=== PATIENT | male | born 2000 | race Caucasian/White ===

== ENCOUNTER 2022-02-10 20:17 | Emergency (ER) | payer OTHER ==
[~2022-02-10] VITALS: Ht 170.2 cm; Wt 65.8 kg
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
--- NOTE | 2022-02-10 20:53 | NUR ---
Dr. Soriano at bedside for MSE.
[2022-02-10] MEDS ORDERED: MORPHINE SULFATE 4 MG/1 ML DISP.SYRIN IV ONE (21:00)
[2022-02-10] MEDS ORDERED: CEFAZOLIN 2 G in IV DEXTROSE 5% 100 ML IV ONE (21:00)
[2022-02-10] MEDS ORDERED: TDAP DIPH,PERTUSS,TET VAC/PF 0.5 ML DISP.SYRIN IM ONE ×2 (21:00→21:15)
[2022-02-10] MEDS ORDERED: CEFAZOLIN 1 G VIAL ONE (21:14)
[2022-02-10] MEDS ORDERED: MORPHINE SULFATE 4 MG/1 ML DISP.SYRIN ONE (21:15)
[2022-02-10] MEDS ORDERED: MORPHINE SULFATE 2 MG/1 ML DISP.SYRIN ONE (21:15)
[2022-02-10] MEDS ORDERED: LIDOCAINE HCL 1% 20 ML VIAL ONE (22:40)
[2022-02-10] MEDS ORDERED: LIDOCAINE HCL 1% 20 ML VIAL IJ ONE (22:45)
--- NOTE | 2022-02-11 00:10 | NUR ---
Called [facility], spoke to nursing supervisor pit and auxiliaries Anita who states they don't have a hand surgeon on staff.
--- NOTE | 2022-02-11 00:11 | NUR ---
Dr. Soriano placed sutures to left thumb area. he states the pt will need a hand surgeon.
--- NOTE | 2022-02-11 00:20 | NUR ---
Called [facility] and spoke to Michelle who requested facesheet and clinicals ro be faxed to
--- NOTE | 2022-02-11 00:31 | NUR ---
Called [facility] center and spoke to Usha who requested clinicals and facesheet
--- NOTE | 2022-02-11 00:45 | NUR ---
spoke with [facility] they are requesting clinicals, face sheet and xray to be faxed to [phone]
--- NOTE | 2022-02-11 00:52 | NUR ---
Called [facility] and spoke to GM who states they ar unable to accept patient due to they are at capacity at this time.
[2022-02-11] MEDS ORDERED: VANCOMYCIN 1G/D5W 200 ML PIGGYBACK IV ONE (01:00)
[2022-02-11] MEDS ORDERED: VANCOMYCIN IV 200 ML ONE (01:21)
--- NOTE | 2022-02-11 01:33 | NUR ---
Usha from [facility] transfer center called back who stated they are unable to accept patient due to they are at capacity.
--- NOTE | 2022-02-11 02:10 | NUR ---
pt awake denies any pain, he is aware we are trying to make arrangements for tr to another hospital.
--- NOTE | 2022-02-11 03:20 | NUR ---
Called [facility] center and spoke to Candice who requested clinicals and facesheet to be faxed to .
--- NOTE | 2022-02-11 05:16 | NUR ---
Candice from [facility] transfer center called back and stated they are not able to accept patient at this time due to max capacity.
--- NOTE | 2022-02-11 05:50 | NUR ---
pictures of pt's hand were sent to [phone] [facility]. Dr. Soriano is on the phone with [facility] for possible tranfer for hand surgery.
--- NOTE | 2022-02-11 06:07 | NUR ---
Gerry from [facility] Transfer Center called back [facility] Transfer info. Patient will going to [facility] room 8817, Accept MD is Dr Mcfarland.
--- NOTE | 2022-02-11 06:10 | NUR ---
Called [facility] ambulance for transport. Patient ETA is [phone].
--- NOTE | 2022-02-11 07:00 | NUR ---
Received pt awake on bed, alert and orientedx4, mother in law on bedside. No active bleeding on Right thumb. Vitals as follows; BP-144/80 NY-70 RR-18 T-97.2 SPO2-98% RA.
--- NOTE | 2022-02-11 07:00 | NUR ---
No activ bleeding on left thumb.
--- NOTE | 2022-02-11 08:41 | NUR ---
Patient alert and orientedx4, no complaints of pain/discomfort at this time, relative at bedside. No active bleeding on left thumb, dressing applied. Patient transf to [facility] room 8817 under MD leija via BLS ambulance. Report given to Nurse Patel. Patient vitals as follows; BP-143/86 RR-18 T-98.2 SPO2-99% RA.
== END 2022-02-11 08:47 | disposition short-term general hospital (02) ==
LOC: ER 20:17
DX: S61.412A Laceration without foreign body of left hand, initial encounter (principal); S66.222A Laceration of extensor muscle, fascia and tendon of left thumb at wrist and hand level, initial encounter; V18.4XXA Pedal cycle driver injured in noncollision transport accident in traffic accident, initial encounter; Y93.55 Activity, bike riding; Y92.89 Other specified places as the place of occurrence of the external cause; Z20.822 Contact with and (suspected) exposure to COVID-19
CPT/HCPCS: 12002; 73090; 73110; 73130; 87426; 90471; 90715; 96365; 96366 ×2; 96367; 96372; 96375; 99285; J0690; J2270 ×2; J3370; J3490; A4663